=== PATIENT | male | born 1955 | race American Indian/Alaskan Native ===

== ENCOUNTER 2017-08-26 11:23 | Emergency (ER) | payer BC ==
[2017-08-26 11:34] VITALS: BP 145/94
[2017-08-26] MEDS ORDERED: MUCINEX ER PO ONE (13:07)
--- NOTE | 2017-08-26 13:18 | Emergency Department Report ---
HPI - General Chief Complaint: Upper Respiratory Infection Time Seen by Provider: 08/26/17 12:44 - HPI HPI: The patient is a 62-year-old male presents for evaluation of nasal congestion and difficulty breathing. The patient reports 3 weeks of constant nasal congestion and difficulty breathing due to the congestion, worsening with lying flat at night, severe, improved with saline nasal flushes. The patient denies headache, fever, chest pain, cough, rash or chills, night sweats. ED Past Medical Hx - Past Medical History Hx Hypertension: Yes - Surgical History Past Surgical History?: Yes Additional Surgical History: appendix surgery - Social History Smoking Status: Never Smoker Substance Use Type: None - Medications Home Medications: Home Medications Medication Instructions Recorded Confirmed Last Taken Type Guaifenesin/Pseudoephedrne HCl 1 each PO BID #20 tab.er.12h 08/26/17 Unknown Rx [Mucinex D ER 1,200-120 mg Tab] ED Review of Systems ROS: Stated complaint: CANT BREATHE Other details as noted in HPI Constitutional: denies: fever ENT: reports nasal congestion denies: throat or neck pain Respiratory: denies: cough reports shortness of breath Cardiovascular: denies: chest pain Endocrine: denies unexplained weight loss or gain Gastrointestinal: denies: abdominal pain, nausea Genitourinary: denies: dysuria Musculoskeletal: denies: leg swelling Skin: denies: rash Neurological: denies: headache Hematological/Lymphatic: denies: easy bleeding or easy bruising Psych: denies sadness or hopelessness Physical Exam - Physical Exam Vital Signs: Vital Signs 08/26/17 11:25 Temperature 98.1 F Pulse Rate 72 Respiratory 18 Rate Blood Pressure 145/94 O2 Sat by Pulse 99 Oximetry Physical Exam: General: well-nourished, well-developed, no acute distress Head: Normocephalic, atraumatic Eyes: normal sclera ENT: Bilateral nasal congestion is mucosa edema present, Mucous membranes are pink and moist Neck: trachea midline, neck supple, No neck stiffness, no cervical adenopathy Respiratory: Breath sounds equal bilaterally, no wheezing, rales, or rhonchi Cardio: S1 and S2 present, no murmurs, rubs, gallops, capillary refill is brisk Abdomen: Normoactive bowel sounds, soft abdomen, no rigidity, no guarding or rebound tenderness Chest WALL/Back: No tenderness to palpation of the chest wall, no CVA tenderness with percussion Musc: No pitting edema Skin: No rash Neuro: no facial drooping, normal speech Psych: Normal affect ED Course Vital Signs 08/26/17 11:25 Temperature 98.1 F Pulse Rate 72 Respiratory 18 Rate Blood Pressure 145/94 O2 Sat by Pulse 99 Oximetry ED Medical Decision Making - Medical Decision Making The patient was seen and examined by myself. The patient is placed on a cardiac technologist and continuous pulse ox. On initial evaluation, the patient was found to be in no distress. Evaluation orders were placed. The patient declined chest x-ray. The patient is given a tablet of Mucinex for his congestion.The patient was reevaluated and reported that their symptoms were markedly improved. The patient is stable for discharge with outpatient follow- up. The patient is given follow-up and return instructions. The patient expressed understanding and agreed with the plan. The patient is discharged in stable condition. Critical care attestation.: If time is entered above; I have spent that time in minutes in the direct care of this critically ill patient, excluding procedure time. ED Disposition Clinical Impression: Nasal sinus congestion Rhinitis, chronic Qualifiers: Rhinitis type: allergic Allergic rhinitis trigger: unspecified Allergic rhinitis seasonality: unspecified seasonality Qualified Code(s): J30.9 - Allergic rhinitis, unspecified Dyspnea, unspecified Qualifiers: Dyspnea type: unspecified Qualified Code(s): R06.00 - Dyspnea, unspecified Disposition: - TO HOME OR SELFCARE Is pt being admited?: No Does the pt Need Aspirin: No Condition: Stable Instructions: Allergic Rhinitis (ED), Guaifenesin (By mouth), Dyspnea (ED) Prescriptions: Guaifenesin/Pseudoephedrne HCl [Mucinex D ER 1,200-120 mg Tab] 1 each PO BID # 20 tab.er.12h Referrals: IRAIS SPARKS MD [Staff Physician] - 3-5 Days Time of Disposition: 13:03
== END 2017-08-26 13:29 | disposition home or self-care (01) ==
LOC: ED 11:23
DX: J30.9 Allergic rhinitis, unspecified (principal); R09.81 Nasal congestion; I10 Essential (primary) hypertension